=== PATIENT | female | born 1990 | race Caucasian/White ===

== ENCOUNTER 2016-06-24 01:08 | Emergency (ER) | payer MEDICAID | END 2016-06-24 04:23 | disposition home or self-care (01) | LOC: ER 01:08 | DX: R50.9 Fever, unspecified (principal); J10.1 Influenza due to other identified influenza virus with other respiratory manifestations; F17.210 Nicotine dependence, cigarettes, uncomplicated | CPT/HCPCS: 36415; 80053; 81001; 83690; 84703; 85025; 87804 ==